=== PATIENT | male | born 1990 | race Two or more races ===

== ENCOUNTER 2023-12-18 20:41 | Emergency (ER) | payer SELFPAY ==
[~2023-12-18] VITALS: Ht 180.3 cm; Wt 86.4 kg
[2023-12-18 20:58] VITALS: BP 132/96
[2023-12-18 21:15] VITALS: PULSE 115; RESP 15; O2SAT 97
[2023-12-18 21:21] LABS: Basophils # (auto) 0.1 10 ^3/uL (0-0.2); Basophils % (auto) 0.7 % (0.0-2.0); Eosinophils # (auto) 0 10 ^3/uL (0-0.8); Eosinophils % (auto) 0.4 % (0.0-7.0); Hematocrit 45.4 % (41.0-53.0); Hemoglobin 14.9 g/dL (13.5-17.5); Lymphocytes # (auto) 1.9 10 ^3/uL (0.4-5.4); Lymphocytes % (auto) 19.5 % (10.0-50.0); Mean Corpuscular Hemoglobin 30.1 pg (28.0-32.0); Mean Corpuscular Hgb Conc. 32.8 g/dL (32.0-36.0); Mean Corpuscular Volume 91.8 fL (80.0-100.0); Monocytes # (auto) 0.8 10 ^3/uL (0-1.3); Monocytes % (auto) 8.2 % (0.0-12.0); Neutrophils # (auto) 6.8 10 ^3/uL (1.6-8.6); Neutrophils % (auto) 71.2 % (37.0-80.0); Red Blood Cells 4.94 10^6/uL (4.5-5.90); Red Cell Distribution Width 14.5 % (11.8-14.3); White Blood Cell 9.5 10^3/uL (4.4-10.8)
[2023-12-18 21:33] LABS: Chloride 104 mmol/L (98-107); Potassium 3.7 mmol/L (3.5-5.1); Sodium 140 mmol/L (136-145)
[2023-12-18 21:34] LABS: Anion Gap 14 (5-15); Calcium 9.3 mg/dL (8.5-10.1); Carbon Dioxide 22 mmol/L (20-30)
[2023-12-18 21:39] LABS: BUN/Creatinine Ratio 5.5 (10.0-20.0); Blood Urea Nitrogen 8 mg/dL (9-23); Glucose 81 mg/dL (74-106)
[2023-12-18 21:40] LABS: Blood Alcohol 288.1 mg/dL (<10)
== END 2023-12-19 00:17 | disposition home or self-care (01) ==
LOC: EEVIPCON 20:41 → ER 20:41
DX: S01.03XA Puncture wound without foreign body of scalp, initial encounter (principal); S41.132A Puncture wound without foreign body of left upper arm, initial encounter; F14.90 Cocaine use, unspecified, uncomplicated; F10.10 Alcohol abuse, uncomplicated; W34.09XA Accidental discharge from other specified firearms, initial encounter; Y93.89 Activity, other specified; Y92.89 Other specified places as the place of occurrence of the external cause; Y99.8 Other external cause status; Y90.0 Blood alcohol level of less than 20 mg/100 ml
CPT/HCPCS: 36415; 71045; 73030; 73060; 80048; 80320; 85025